=== PATIENT | male | born 1985 | race Caucasian/White ===

== ENCOUNTER 2018-04-24 02:38 | Emergency (ER) | payer SELFPAY ==
[2018-04-24] MEDS ORDERED: PREDNISONE 20 MG TABLET PO ONE (03:58)
[2018-04-24] MEDS ORDERED: AZITHROMYCIN 250 MG TABLET PO ONE (03:58)
--- NOTE | 2018-04-24 05:05 | ER Document Report ---
HPI - HPI Patient complains to provider of: Productive cough, chills Time Seen by Provider: 04/24/18 03:38 Pain Level: 0 Context: Patient is a 33-year-old male that comes to the emergency department for chief complaint of 2 weeks of worsening cough. He states that he has had intermittent wheezing but he is able to cough, clear the mucus, and the wheezing resolves. He states that for the past 2-3 days he has been having chills and he feels like he is developing pneumonia. He reports pain in his chest with cough. Mild sore throat. No significant congestion. Denies headaches. He smokes. He denies history of asthma, COPD. He takes no daily medications at home. He is not on oxygen, he does not have inhalers. Patient does have sick family members. Patient was sick first. Past Medical History - General Information source: Patient - Social History Smoking Status: Current Every Day Smoker Smoking Education Provided: Yes - <3 min Frequency of alcohol use: None Drug Abuse: None Lives with: Family Family History: Reviewed & Not Pertinent - Medical History Medical History: Negative Surgical Hx: Negative - Immunizations Immunizations up to date: Yes Hx Diphtheria, Pertussis, Tetanus Vaccination: Yes Vertical Provider Document - CONSTITUTIONAL General Appearance: WD/WN, No Apparent Distress - HEENT HEENT: Atraumatic, Normocephalic. negative: Normal ENT Exam - Mild erythema of the posterior pharynx, otherwise unremarkable ENT exam, Pharyngeal Exudate, Pharyngeal Tenderness, Pharyngeal Erythema, Tympanic Membrane Red, Tympanic Membrane Bulging - NECK Neck: Normal Inspection - RESPIRATORY Respiratory: Other - A few scattered coarse breath sounds. No overt rhonchi, wheezes, or rales. Frequent congested cough. - CARDIOVASCULAR Cardiovascular: Regular Rate, Regular Rhythm - GI/ABDOMEN Gastrointestinal: Abdomen Soft, Abdomen Non-Tender - MUSCULOSKELETAL/EXTREMETIES Musculoskeletal/Extremeties: MAEW, FROM, Non-Tender - NEURO Level of Consciousness: Awake, Alert, Appropriate - DERM Integumentary: Warm, Dry, No Rash Course - Re-evaluation Re-evalutation: Patient's evaluation is consistent with bronchitis, patient with multiple sick family members. However patient has been sick for 2 weeks, he has recently developed additional chills, clinically there is a possibility that he has developed pneumonia. We discussed chest x-ray, this was declined. Patient appear working, hoping to be treated and that he will be going back home. Patient will be placed on prednisone, azithromycin. Discussed smoking cessation, follow-up, strict return precautions with patient. Patient states satisfaction and agreement. Vital signs unremarkable. Stable at time of discharge. - Vital Signs Vital signs: Temp Pulse Resp BP Pulse Ox 97.6 F 76 16 142/91 H 99 04/24/18 02:54 04/24/18 02:54 04/24/18 02:54 04/24/18 02:54 04/24/18 02:54 Discharge - Discharge Clinical Impression: Productive cough, Chills, Tobacco abuse Condition: Stable Disposition: HOME, SELF-CARE Additional Instructions: Your evaluation is most consistent with bronchitis, this probably was viral initially, we are covering you for possible underlying developed pneumonia. Symptoms should gradually resolve with time but you may have continued cough and congestion symptoms for a week or 2 at least. Take prednisone as prescribed, take azithromycin as prescribed, you can take [id number] remedies as well. Stop smoking. Follow-up with primary care. Return if you worsen including difficulty breathing, spiking fevers, or any other concerning or worsening symptoms. Prescriptions: Azithromycin [Zithromax 250 mg Tablet] 250 mg PO ASDIR PRN #4 tablet PRN Reason: Prednisone [Deltasone 20 mg Tablet] 3 tab PO DAILY 5 Days tablet Forms: Elevated Blood Pressure
[2018-04-24 05:29] VITALS: BP 145/99
== END 2018-04-24 05:16 | disposition home or self-care (01) ==
LOC: ER 02:38
DX: R05 Cough (principal); R68.83 Chills (without fever); R06.2 Wheezing; J02.9 Acute pharyngitis, unspecified; F17.200 Nicotine dependence, unspecified, uncomplicated
CPT/HCPCS: 99283; J7512